=== PATIENT | female | born 1940 | race Caucasian/White ===

== ENCOUNTER 2018-06-29 11:23 | Outpatient (REF) | payer OTHER, SELFPAY ==
[2018-06-29 22:11] LABS: Abs Immature Grans 0.05 k/cumm (0.0-0.09); Absolute Basophil Count 0.04 k/cumm (0.0-0.2); Absolute Eosinophil Count 0.23 k/cumm (0.0-0.7); Absolute Monocyte Count 1.01 k/cumm (0.11-0.7); Basophils % 0.4; Eosinophils % 2.1; HCT 41.6 % (36.0-46.0); HGB 13.1 g/dL (12.0-15.5); Immature Grans % 0.5; Lymphocytes % 23.2; Mean Corp. HGB Concentration 31.5 g/dL (32.0-36.0); Mean Corpuscular Hemoglobin 27.7 pg (27.0-33.0); Mean Corpuscular Volume 87.9 fL (80-95); Mean Platelet Volume 10.4 fL (8.0-11.0); Monocytes % 9.1; Neutrophils % 64.7; Platelet Count 423 x1000/uL (130-400); RBC 4.73 m/cumm (4.00-5.20); RBC Distribution Width 14.6 % (11.7-14.6)
[2018-06-29 22:17] LABS: Absolute Lymphocyte Count 2.58 k/cumm (1.2-3.4); Absolute Neutrophil Count 7.18 k/cumm (1.2-6.7)
[2018-06-29 22:44] LABS: ALT 11 U/L (12-78); AST 14 U/L (15-37); Albumin 3.1 g/dL (3.4-5.0); Alkaline Phosphatase 105 U/L (46-116); Anion Gap 9.4 mmol/L (3-11); BUN 12 mg/dL (7-18); Bilirubin, Total 0.5 mg/dL (0.2-1.0); CO2 28.6 mmol/L (21.0-32.0); CREATININE 0.94 mg/dL (0.55-1.02); Calcium 8.7 mg/dL (8.5-10.1); Chloride 101 mmol/L (98-107); Estimated GFR 57.59 (mL/min/1.73m2); Glucose 101 mg/dL (70-100); Sodium 139 mmol/L (136-145); TSH 2.99 uIU/mL (0.358-3.74); Total Protein 7.1 g/dL (6.4-8.2); Vitamin B12 547 pg/mL (193-986)
== END 2018-06-29 11:43 ==
LOC: NCHCN 11:23
PROVIDERS: PCP Nurse Practitioner Family; Visit Provider Nurse Practitioner Family
DX: R63.4 Abnormal weight loss (principal)
CPT/HCPCS: 80053; 82607; 84443; 85025

== ENCOUNTER 2019-02-19 14:24 | Outpatient (REF) | payer OTHER, SELFPAY ==
[2019-02-22 11:44] LABS: HSV 1 DNA Result Negative; HSV 2 DNA Result POSITIVE; Specimen Description Other; Varicella Zoster DNA Result Negative
== END 2019-02-19 14:44 ==
LOC: NCHCN 14:24
PROVIDERS: PCP Nurse Practitioner Family; Visit Provider Nurse Practitioner Family
DX: R21 Rash and other nonspecific skin eruption (principal); Z11.59 Encounter for screening for other viral diseases
CPT/HCPCS: 86787; 87529; 87798; 86695; 86696

== ENCOUNTER 2019-05-25 15:51 | Outpatient (REF) | payer OTHER, SELFPAY ==
[2019-05-25 21:02] LABS: C-Reactive Protein 2.18 mg/dL (0.0-0.3); Glucose 95 mg/dL (70-100)
[2019-05-25 21:31] LABS: ESR 34 mm/hr (0-30)
== END 2019-05-25 16:11 ==
LOC: NCHCN 15:51
PROVIDERS: PCP Nurse Practitioner Family; Visit Provider Nurse Practitioner Family
DX: R79.82 Elevated C-reactive protein (CRP) (principal); R51 Headache; R73.01 Impaired fasting glucose; M19.049 Primary osteoarthritis, unspecified hand
CPT/HCPCS: 82947; 85652; 86140

== ENCOUNTER 2020-04-18 15:25 | Outpatient (REF) | payer OTHER, SELFPAY ==
[2020-04-18 21:51] LABS: Anion Gap 9.3 mmol/L (3-11); CO2 29.7 mmol/L (21.0-32.0); CREATININE 0.86 mg/dL (0.55-1.02); Calcium 9.4 mg/dL (8.5-10.1); Chloride 102 mmol/L (98-107); Glucose 116 mg/dL (74-106); Potassium 4.4 mmol/L (3.5-5.1); Sodium 141 mmol/L (136-145); TSH 8.56 uIU/mL (0.36-3.74)
[2020-04-18 22:24] LABS: BUN 12 mg/dL (7-18); C-Reactive Protein 3.09 mg/dL (0.0-0.3)
== END 2020-04-18 15:45 ==
LOC: NCHCN 15:25
PROVIDERS: PCP Nurse Practitioner Family; Visit Provider Nurse Practitioner Family
DX: I10 Essential (primary) hypertension (principal); E03.9 Hypothyroidism, unspecified; E78.5 Hyperlipidemia, unspecified
CPT/HCPCS: 80048; 84443; 86140

== ENCOUNTER 2021-02-09 14:56 | Outpatient (REF) | payer OTHER, SELFPAY ==
[2021-02-11 10:58] LABS: COVID-19 RT-PCR UVMMC Result Negative (Negative)
== END 2021-02-10 07:37 | disposition home or self-care (01) ==
LOC: NCHCN 14:56
PROVIDERS: PCP Nurse Practitioner Family; Visit Provider Registered Nurse
DX: Z20.822 Contact with and (suspected) exposure to COVID-19 (principal); J06.9 Acute upper respiratory infection, unspecified
CPT/HCPCS: U0003

== ENCOUNTER 2021-06-11 20:37 | Outpatient (REF) | payer OTHER, SELFPAY ==
[2021-06-11 16:19] LABS: Anion Gap 8.4 mmol/L (3-11); BUN 13 mg/dL (7-18); CO2 30.6 mmol/L (21.0-32.0); CREATININE 1.1 mg/dL (0.55-1.02); Calcium 9.3 mg/dL (8.5-10.1); Chloride 100 mmol/L (98-107); Estimated GFR 47.79 (mL/min/1.73m2); Glucose 92 mg/dL (74-106); Potassium 4.4 mmol/L (3.5-5.1); Sodium 139 mmol/L (136-145); TSH 0.29 uIU/mL (0.36-3.74); Vitamin B12 746 pg/mL (193-986)
== END 2021-06-11 20:38 | disposition home or self-care (01) ==
LOC: NCHCN 20:37
PROVIDERS: PCP Nurse Practitioner Family; Visit Provider Nurse Practitioner Family
DX: I10 Essential (primary) hypertension (principal); R73.03 Prediabetes; J44.9 Chronic obstructive pulmonary disease, unspecified; F41.8 Other specified anxiety disorders
CPT/HCPCS: 80048; 82607; 83735; 84443

== ENCOUNTER 2021-08-06 11:24 | Outpatient (REF) | payer MEDICARE, SELFPAY ==
[2021-08-06 15:39] LABS: BUN 14 mg/dL (7-18); CREATININE 0.9 mg/dL (0.55-1.02); Calcium 9.3 mg/dL (8.5-10.1); Chloride 103 mmol/L (98-107); Glucose 73 mg/dL (74-106); Potassium 4.6 mmol/L (3.5-5.1); Sodium 142 mmol/L (136-145); TSH 3.07 uIU/mL (0.36-3.74)
[2021-08-06 15:40] LABS: Hemoglobin A1C 5.4 % (<5.7)
== END 2021-08-06 11:25 | disposition home or self-care (01) ==
LOC: NCHCN 11:24
PROVIDERS: PCP Nurse Practitioner Family; Visit Provider Nurse Practitioner Family
DX: E03.9 Hypothyroidism, unspecified (principal); I10 Essential (primary) hypertension; R73.03 Prediabetes
CPT/HCPCS: 80048; 83036; 84443

== ENCOUNTER 2022-07-04 16:47 | Outpatient (REF) | payer MEDICARE, SELFPAY ==
[2022-07-04 16:04] LABS: HCT 34.7 % (36.0-46.0); HGB 11.5 g/dL (11.2-15.7); MCH 28.7 pg (27.0-33.0); MCHC 33.1 % (32.0-36.0); MCV 87 fL (80-95); MPV 9.9 fL (8.0-11.0); Platelet Count 365 10^3/uL (130-400); RBC 4.01 10^6/uL (3.93-5.22); RDW-SD 45.1 fL; WBC 7.41 10^3/uL (4.4-10.8)
[2022-07-04 16:06] LABS: Hemoglobin A1C 5.6 % (<5.7)
[2022-07-04 16:07] LABS: ESR 39 mm/hr (0-30)
[2022-07-04 16:40] LABS: Anion Gap 7.1 mmol/L (3-11); BUN 12 mg/dL (7-18); C-Reactive Protein 1.75 mg/dL (0.0-0.3); CO2 31.9 mmol/L (21.0-32.0); Calcium 9.1 mg/dL (8.5-10.1); Chloride 98 mmol/L (98-107); Estimated GFR 56.25 (mL/min/1.73m2); Glucose 122 mg/dL (74-106); Potassium 3.5 mmol/L (3.5-5.1); Sodium 137 mmol/L (136-145); TSH 0.82 uIU/mL (0.36-3.74)
== END 2022-07-04 16:48 | disposition home or self-care (01) ==
LOC: NCHCN 16:47
PROVIDERS: PCP Nurse Practitioner Family; Visit Provider Nurse Practitioner Family
DX: R73.03 Prediabetes (principal); I10 Essential (primary) hypertension; J44.9 Chronic obstructive pulmonary disease, unspecified; E03.9 Hypothyroidism, unspecified; R53.81 Other malaise; M85.88 Other specified disorders of bone density and structure, other site; R79.82 Elevated C-reactive protein (CRP)
CPT/HCPCS: 80048; 85027; 85652; 83036; 84443; 86140

== ENCOUNTER 2022-11-25 15:48 | Outpatient (REF) | payer MEDICARE, SELFPAY ==
[2022-11-25 21:45] LABS: HCT 36.6 % (36.0-46.0); HGB 11.8 g/dL (11.2-15.7); MCH 28.4 pg (27.0-33.0); MCHC 32.2 % (32.0-36.0); MCV 88 fL (80-95); Platelet Count 363 10^3/uL (130-400); RBC 4.15 10^6/uL (3.93-5.22); RDW 14.4 % (11.7-14.6); RDW-SD 46.4 fL; WBC 8.07 10^3/uL (4.4-10.8)
[2022-11-25 22:20] LABS: ALT 11 U/L (14-59); AST 20 U/L (15-37); Albumin 3.5 g/dL (3.4-5.0); Alkaline Phosphatase 82 U/L (46-116); Anion Gap 6.6 mmol/L (3-11); BUN 22 mg/dL (7-18); Bilirubin, Total 0.5 mg/dL (0.2-1.0); CO2 31.4 mmol/L (21.0-32.0); CREATININE 1.2 mg/dL (0.55-1.02); Calcium 9.1 mg/dL (8.5-10.1); Calculated LDL 119 mg/dL (<100); Chloride 99 mmol/L (98-107); Cholesterol 243 mg/dL (<200); Estimated GFR 45.19 (mL/min/1.73m2); Glucose 95 mg/dL (74-106); HDL Cholesterol 100 mg/dL (40-60); Potassium 4.3 mmol/L (3.5-5.1); Sodium 137 mmol/L (136-145); TSH 1.74 uIU/mL (0.36-3.74); Total Protein 7.6 g/dL (6.4-8.2); Triglyceride 123 mg/dL (<150)
[2022-11-25 22:37] LABS: Hemoglobin A1C 5.3 % (<5.7)
== END 2022-11-25 15:49 | disposition home or self-care (01) ==
LOC: NCHCN 15:48
PROVIDERS: PCP Nurse Practitioner Family; Visit Provider Nurse Practitioner Family
DX: E78.5 Hyperlipidemia, unspecified (principal); L29.8 Other pruritus; I10 Essential (primary) hypertension; E03.9 Hypothyroidism, unspecified; R73.03 Prediabetes
CPT/HCPCS: 80053; 80061; 85027; 83036; 84443

== ENCOUNTER 2023-09-30 20:50 | Outpatient (REF) | payer MEDICARE, SELFPAY ==
[2023-09-30 20:46] LABS: HCT 40.7 % (36.0-46.0); MCH 28.9 pg (27.0-33.0); MCHC 31.9 % (32.0-36.0); MCV 90 fL (80-95); MPV 9.9 fL (8.0-11.0); Platelet Count 305 10^3/uL (130-400); RDW 13.5 % (11.7-14.6); RDW-SD 45.2 fL; WBC 7.51 10^3/uL (4.4-10.8)
[2023-09-30 21:08] LABS: Anion Gap 4.9 mmol/L (3-11); BUN 16 mg/dL (7-18); CO2 32.1 mmol/L (21.0-32.0); CREATININE 1.1 mg/dL (0.55-1.02); Calcium 9.1 mg/dL (8.5-10.1); Chloride 101 mmol/L (98-107); Estimated GFR 49.86 (mL/min/1.73m2); Glucose 89 mg/dL (74-106); Potassium 3.9 mmol/L (3.5-5.1); Sodium 138 mmol/L (136-145)
[2023-09-30 21:22] LABS: Hemoglobin A1C 5.5 % (<5.7)
== END 2023-09-30 20:51 | disposition home or self-care (01) ==
LOC: NCHCN 20:50
PROVIDERS: PCP Nurse Practitioner Family; Visit Provider Nurse Practitioner Family
DX: E03.9 Hypothyroidism, unspecified (principal); I10 Essential (primary) hypertension; R73.03 Prediabetes
CPT/HCPCS: 80048; 85027; 83036; 84443

== ENCOUNTER → 2023-11-03 13:04 | Outpatient (BNVA) | payer MEDICARE, SELFPAY | PROVIDERS: PCP Nurse Practitioner Family; Referring Provider Nurse Practitioner Family; Visit Provider Physician Assistant Surgical | DX: J44.9 Chronic obstructive pulmonary disease, unspecified (principal); J98.4 Other disorders of lung; Z99.81 Dependence on supplemental oxygen; Z87.891 Personal history of nicotine dependence | CPT/HCPCS: 99205 ==

== ENCOUNTER → 2024-01-02 13:46 | Outpatient (BNVA) | payer MEDICARE, SELFPAY | PROVIDERS: PCP Nurse Practitioner Family; Referring Provider Nurse Practitioner Family; Visit Provider Student in an Organized Health Care Education/Training Program | DX: J44.9 Chronic obstructive pulmonary disease, unspecified (principal); J98.4 Other disorders of lung; J84.89 Other specified interstitial pulmonary diseases; Z99.81 Dependence on supplemental oxygen; Z87.891 Personal history of nicotine dependence | CPT/HCPCS: 99214 ==

== ENCOUNTER 2024-01-30 15:39 | Outpatient (REF) | payer MEDICARE, SELFPAY ==
[2024-01-30 21:13] LABS: Abs Immature Grans 0.03 10^3/uL (0.0-0.06); Absolute Basophil Count 0.05 10^3/uL (0.0-0.2); Absolute Eosinophil Count 0.28 10^3/uL (0.0-0.7); Absolute Lymphocyte Count 2.32 10^3/uL (1.2-3.4); Absolute Monocyte Count 0.59 10^3/uL (0.1-0.8); Absolute Neutrophil Count 5.03 10^3/uL (1.2-6.7); Basophils % 0.6; Eosinophils % 3.4; HCT 44.1 % (36.0-46.0); HGB 14.3 g/dL (11.2-15.7); Immature Grans % 0.4; MCH 30.6 pg (27.0-33.0); MCHC 32.4 % (32.0-36.0); MCV 94 fL (80-95); Monocytes % 7.1; Neutrophils % 60.5; Platelet Count 316 10^3/uL (130-400); RBC 4.68 10^6/uL (3.93-5.22); RDW 14.1 % (11.7-14.6); RDW-SD 48.3 fL
[2024-01-30 21:40] LABS: Anion Gap 7.3 mmol/L (3-11); BUN 14 mg/dL (7-18); CO2 30.7 mmol/L (21.0-32.0); CREATININE 1.1 mg/dL (0.55-1.02); Calcium 8.8 mg/dL (8.5-10.1); Chloride 105 mmol/L (98-107); Estimated GFR 49.86 (mL/min/1.73m2); Glucose 139 mg/dL (74-106); Potassium 4.2 mmol/L (3.5-5.1); Sodium 143 mmol/L (136-145); TSH (W/Ref FT4) 4.04 uIU/mL (0.36-3.74)
== END 2024-01-30 15:40 | disposition home or self-care (01) ==
LOC: NCHCN 15:39
PROVIDERS: PCP Nurse Practitioner Family; Visit Provider Family Medicine
DX: R61 Generalized hyperhidrosis (principal)
CPT/HCPCS: 80048; 84439; 84443; 85025

== ENCOUNTER 2024-04-19 13:47 | Outpatient (REF) | payer MEDICARE, SELFPAY ==
[2024-04-19 15:58] LABS: TSH 0.19 uIU/Ml (0.36-3.74)
[2024-04-19 16:29] LABS: Hemoglobin A1C 5.4 % (<5.7)
== END 2024-04-19 13:48 | disposition home or self-care (01) ==
LOC: NCHCN 13:47
PROVIDERS: PCP Nurse Practitioner Family; Visit Provider Nurse Practitioner Family
DX: E03.9 Hypothyroidism, unspecified (principal); R73.03 Prediabetes
CPT/HCPCS: 83036; 84443

== ENCOUNTER → 2024-07-01 12:35 | Outpatient (BNVA) | payer MEDICARE, SELFPAY | PROVIDERS: PCP Nurse Practitioner Family; Referring Provider Nurse Practitioner Family; Visit Provider Physician Assistant Surgical | DX: J84.89 Other specified interstitial pulmonary diseases (principal); J98.4 Other disorders of lung; Z87.891 Personal history of nicotine dependence; Z99.81 Dependence on supplemental oxygen | CPT/HCPCS: 99214 ==

== ENCOUNTER 2024-07-27 13:55 | Outpatient (REF) | payer MEDICARE, SELFPAY ==
[2024-07-27 14:32] LABS: TSH 0.65 uIU/mL (0.36-3.74)
== END 2024-07-27 13:56 | disposition home or self-care (01) ==
LOC: NCHCN 13:55
PROVIDERS: Visit Provider Nurse Practitioner Family
DX: E03.9 Hypothyroidism, unspecified (principal)
CPT/HCPCS: 84443

== ENCOUNTER 2024-10-26 16:44 | Outpatient (REF) | payer MEDICARE, SELFPAY ==
[2024-10-26 21:20] LABS: Abs Immature Grans 0.01 10^3/uL (0.0-0.06); Absolute Basophil Count 0.04 10^3/uL (0.0-0.2); Absolute Eosinophil Count 0.21 10^3/uL (0.0-0.7); Absolute Lymphocyte Count 2.36 10^3/uL (1.2-3.4); Absolute Monocyte Count 0.64 10^3/uL (0.1-0.8); Absolute Neutrophil Count 4.92 10^3/uL (1.2-6.7); Basophils % 0.5 %; Eosinophils % 2.6 %; HCT 45.3 % (36.0-46.0); HGB 14.6 g/dL (11.2-15.7); Immature Grans % 0.1 %; Lymphocytes % 28.9 %; MCH 31.2 pg (27.0-33.0); MCHC 32.2 % (32.0-36.0); MCV 97 fL (80-95); MPV 10.4 fL (8.0-11.0); Monocytes % 7.8 %; Neutrophils % 60.1 %; Platelet Count 291 10^3/uL (130-400); RBC 4.68 10^6/uL (3.93-5.22); RDW 13.8 % (11.7-14.6); WBC 8.18 10^3/uL (4.4-10.8)
[2024-10-26 21:38] LABS: Anion Gap 4.5 mmol/L (3-11); BUN 15 mg/dL (7-18); CO2 33.5 mmol/L (21.0-32.0); CREATININE 0.9 mg/dL (0.55-1.02); Calcium 9.6 mg/dL (8.5-10.1); Chloride 105 mmol/L (98-107); Estimated GFR 63.04 (mL/min/1.73m2); Glucose 83 mg/dL (74-106); Potassium 5.3 mmol/L (3.5-5.1); Sodium 143 mmol/L (136-145); TSH 0.56 uIU/mL (0.36-3.74)
== END 2024-10-26 16:45 | disposition home or self-care (01) ==
LOC: NCHCN 16:44
PROVIDERS: Visit Provider Nurse Practitioner Family
DX: R23.2 Flushing (principal)
CPT/HCPCS: 80048; 84443; 85025